=== PATIENT | female | born 1975 | race Caucasian/White ===

== ENCOUNTER 2016-12-30 14:35 | Emergency (ER) | payer MEDICAID | END 2016-12-30 15:05 | disposition left against medical advice (07) | LOC: ER 14:35 | DX: Z53.20 Procedure and treatment not carried out because of patient's decision for unspecified reasons (principal) ==

== ENCOUNTER 2017-01-24 16:46 | Emergency (ER) | payer MEDICAID ==
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
== END 2017-01-24 20:33 | disposition home or self-care (01) ==
LOC: ER 16:46
DX: S06.9X9A Unspecified intracranial injury with loss of consciousness of unspecified duration, initial encounter (principal); S60.031A Contusion of right middle finger without damage to nail, initial encounter; S20.02XA Contusion of left breast, initial encounter; S50.12XA Contusion of left forearm, initial encounter; S40.021A Contusion of right upper arm, initial encounter; S20.221A Contusion of right back wall of thorax, initial encounter; M54.2 Cervicalgia; F17.210 Nicotine dependence, cigarettes, uncomplicated; Y04.2XXA Assault by strike against or bumped into by another person, initial encounter; Z79.02 Long term (current) use of antithrombotics/antiplatelets
CPT/HCPCS: 70450; 72072; 72125; 99283; 99284

== ENCOUNTER 2017-05-10 12:48 | Emergency (ER) | payer MEDICAID ==
[2017-05-10 13:13] LABS: URINE APPEARANCE SL CLOUDY; URINE BILIRUBIN NEGATIVE (NEGATIVE); URINE BLOOD MODERATE (NEGATIVE); URINE COLOR YELLOW; URINE GLUCOSE (UA) NEGATIVE (NEGATIVE); URINE KETONE TRACE (NEGATIVE); URINE LEUKOCYTE ESTERASE LARGE (NEGATIVE); URINE NITRITE NEGATIVE (NEGATIVE); URINE PROTEIN TRACE (NEGATIVE); URINE UROBILINOGEN 0.2 E.U./dL (0.20 - 1.00)
[2017-05-10 13:21] LABS: HCG,QUALITATIVE URINE NEGATIVE (NEGATIVE); URINE BACTERIA 3+; URINE WBC 36 - 50 (0-2/hpf)
[2017-05-10] MEDS ORDERED: 0.9 % SODIUM CHLORIDE 1,000 ML BAG IV ONE (14:48)
[2017-05-10] MEDS ORDERED: ONDANSETRON HCL IV 4 MG/2 ML VIAL IV ONE (14:48)
[2017-05-10 14:58] LABS: BASO % 0.5 % (0-6); EOS % 2.2 % (0-6); GRAN % 64.7 % (47-80); HEMOGLOBIN 14.3 gm/dl (11.6-16.0); LYMPH % 26.8 % (16-45); MEAN CELL VOLUME 95.5 fl (81-97); MEAN CORPUSCULAR HEMOGLOBIN 32.5 pg (27-33); MEAN PLATELET VOLUME 10.1 fl (7.4-10.4); MONO % 5.8 % (0-9); PLATELET COUNT 258 K/uL (130-400); RED CELL DISTRIBUTION WIDTH 11.7 % (11.5-14.5); WHITE BLOOD COUNT W/O DIFF 9.7 K/uL (4.2-12.2)
[2017-05-10 15:12] LABS: CREATININE 1.1 mg/dL (0.5-0.9)
--- NOTE | 2017-05-10 16:22 | Emergency Department Record ---
History of Present Illness - General Chief complaint: Female Urogenital Problem Stated complaint: KIDNEY PAIN,BLOOD IN URINE Time Seen by Provider: 05/10/17 14:38 Source: Patient Mode of Arrival: Ambulatory Limitations: No limitations - History of Present Illness Initial comments: pt thinks she is having another kidney infection, she has pain in her r flank. no vomiting Onset/Timin -: Days(s) Location: Suprapubic Radiation: R flank Severity: Moderate Severity scale (1-10): 8 Quality: Aching, Burning, Cramping Consistency: Constant Patient : No Associated Symptoms: Nausea/vomiting - Related Data Previous Rx's Medication Instructions Recorded Promethazine HCl [Phenergan] 25 mg PO Q8HR #10 tablet 05/10/17 Sulfamethoxazole/Trimethoprim 1 each PO BID #14 tablet 05/10/17 [Bactrim Ds Tablet] Allergies Allergy/AdvReac Type Severity Reaction Status Date / Time No Known Drug Allergies Allergy Verified 05/10/17 14:08 Travel Screening - Travel/Exposure Within Last 30 Days Have you traveled within the last 30 days?: No - Travel/Exposure Within Last Year Have you traveled outside the [place] in the last year?: No - Additonal Travel Details Have you been exposed to anyone with a communicable illness?: No - Travel Symptoms Symptom Screening: None Review of Systems Reviewed: No additional complaints except as noted below Constitutional: Reports: As per HPI. Denies: Chills, Fever, Malaise, Night sweats, Weakness, Weight change Eyes: Reports: As per HPI. Denies: Eye discharge, Eye pain, Photophobia, Vision change ENT: Reports: As per HPI. Denies: Congestion, Dental pain, Ear pain, Epistaxis , Hearing loss, Throat pain Respiratory: Reports: As per HPI. Denies: Cough, Dyspnea, Hemoptysis, Stridor, Wheezes Cardiovascular: Reports: As per HPI. Denies: Arrhythmia, Chest pain, Dyspnea on exertion, Edema, Murmurs, Orthopnea, Palpitations, Paroxysmal nocturnal dyspnea, Rheumatic Fever, Syncope Endocrine: Reports: As per HPI. Denies: Fatigue, Heat or cold intolerance, Polydipsia, Polyuria Gastrointestinal: Reports: As per HPI. Denies: Abdominal pain, Constipation, Diarrhea, Hematemesis, Hematochezia, Melena, Nausea, Vomiting Genitourinary: Reports: As per HPI. Denies: Abnormal menses, Discharge, Dyspareunia, Dysuria, Frequency, Hematuria, Incontinence, Retention, Urgency Musculoskeletal: Reports: As per HPI. Denies: Arthralgia, Back pain, Gout, Joint swelling, Myalgia, Neck pain Skin: Reports: As per HPI. Denies: Bruising, Change in color, Change in hair/ nails, Lesions, Pruritus, Rash Neurological: Reports: As per HPI. Denies: Abnormal gait, Confusion, Headache, Numbness, Paresthesias, Seizure, Tingling, Tremors, Vertigo, Weakness Psychiatric: Reports: As per HPI. Denies: Anxiety, Auditory hallucinations, Depression, Homicidal thoughts, Suicidal thoughts, Visual hallucinations Hematological/Lymphatic: Reports: As per HPI. Denies: Anemia, Blood Clots, Easy bleeding, Easy bruising, Swollen glands Past Medical History - SOCIAL HISTORY Smoking Status: Light tobacco smoker (<10/day) Alcohol Use: None Drug Use: None - RESPIRATORY Hx Respiratory Disorders: No - CARDIOVASCULAR Hx Cardio Disorders: Yes Hx Hypertension: Yes - NEURO Hx Neuro Disorders: No - GI Hx GI Disorders: Yes Hx Abdominal Pain: Yes Comment:: chronic diarrhea - Hx Genitourinary Disorders: No - ENDOCRINE Hx Endocrine Disorders: No - MUSCULOSKELETAL Hx Musculoskeletal Disorders: Yes - PSYCH Hx Psych Problems: Yes Hx Depression: Yes - HEMATOLOGY/ONCOLOGY Hx Hematology/Oncology Disorders: Yes Hx Blood Transfusions: Yes Hx Blood Transfusion Reaction: No Family Medical History Any Significant Family History?: Yes Hx Heart Disease: Father Physical Exam - General General Appearance: Alert, Oriented x3, Cooperative, Mild distress - Head Head exam: Normal inspection - Eye Eye exam: Normal appearance, PERRL, EOMI Pupils: Normal accommodation - ENT ENT exam: Normal exam, Mucous membranes moist, Normal external ear exam, Normal orophraynx Ear exam: Normal external inspection. negative: External canal tenderness Nasal Exam: Normal inspection. negative: Discharge, Sinus tenderness Mouth exam: Normal external inspection, Tongue normal Teeth exam: Normal inspection. negative: Dental caries Throat exam: Normal inspection. negative: Tonsillar erythema, Tonsillar exudate - Neck Neck exam: Normal inspection, Full ROM. negative: Tenderness - Respiratory Respiratory exam: Normal lung sounds bilaterally. negative: Respiratory distress - Cardiovascular Cardiovascular Exam: Regular rate, Normal rhythm, Normal heart sounds - GI/Abdominal GI/Abdominal exam: Soft, Normal bowel sounds. negative: Tenderness - Rectal Rectal exam: Deferred - exam: Deferred - Extremities Extremities exam: Normal inspection, Full ROM, Normal capillary refill. negative: Tenderness - Back Back exam: Reports: Normal inspection, Full ROM. Denies: Muscle spasm, Rash noted, Tenderness - Neurological Neurological exam: Alert, CN II-XII intact, Normal gait, Oriented X3 - Psychiatric Psychiatric exam: Normal affect, Normal mood - Skin Skin exam: Dry, Intact, Normal color, Warm Course Vital Signs 05/10/17 05/10/17 14:04 15:32 Temperature 98.2 F Pulse Rate 73 Pulse Rate [ 73 Pulse Ox Probe] Respiratory 20 16 Rate Blood Pressure 122/79 Blood Pressure 100/75 [Right Arm] Pulse Ox 98 98 Medical Decision Making - Lab Data Result diagrams: 05/10/17 14:30 05/10/17 14:30 Lab Results 05/10/17 05/10/17 05/10/17 Range/Units 13:05 14:30 14:30 WBC 9.7 (4.2-12.2) K/uL RBC 4.40 (3.80-5.40) M/uL Hgb 14.3 (11.6-16.0) gm/dl Hct 42.0 (35.0-47.0) % MCV 95.5 (81-97) fl MCH 32.5 (27-33) pg MCHC 34.0 (32-36) g/dl RDW 11.7 (11.5-14.5) % Plt Count 258 (130-400) K/uL MPV 10.1 (7.4-10.4) fl Gran % 64.7 (47-80) % Lymphocytes % 26.8 (16-45) % Monocytes % 5.8 (0-9) % Eosinophils % 2.2 (0-6) % Basophils % 0.5 (0-6) % Sodium 139 (136-145) mmol/L Potassium 4.3 (3.4-4.5) mmol/L Chloride 99 (98-107) mmol/L Carbon Dioxide 26.0 (22-29) mmol/L Anion Gap 14.0 (7-16) BUN 25 H (6-20) mg/dL Creatinine 1.1 H (0.5-0.9) mg/dL Estimated GFR 58 mL/min Random Glucose 95 (74-109) mg/dL Calcium 9.6 (8.6-10.0) mg/dL Urine Color Yellow Urine Appearance Sl cloudy Urine pH 5.5 (5.0-8.0) Ur Specific Cubero 1.020 (1.002-1.030) Urine Protein Trace H (NEGATIVE) Urine Glucose (UA) Negative (NEGATIVE) Urine Clinitest Urine Ketones Trace H (NEGATIVE) Urine Blood Moderate (NEGATIVE) Urine Nitrite Negative (NEGATIVE) Urine Bilirubin Negative (NEGATIVE) Urine Ictotest Prot Sulfosalicylic Acd Urine Urobilinogen 0.2 (0.20 - 1.00) E.U./dL Ur Leukocyte Esterase Large H (NEGATIVE) Urine RBC 10 - 15 (NONE SEEN) Urine WBC 36 - 50 (0-2/hpf) Ur Epithelial Cells 7 - 10 (FEW) Urine Bacteria 3+ Urine HCG, Qual Negative (NEGATIVE) 05/10/17 Range/Units 14:48 WBC (4.2-12.2) K/uL RBC (3.80-5.40) M/uL Hgb (11.6-16.0) gm/dl Hct (35.0-47.0) % MCV (81-97) fl MCH (27-33) pg MCHC (32-36) g/dl RDW (11.5-14.5) % Plt Count (130-400) K/uL MPV (7.4-10.4) fl Gran % (47-80) % Lymphocytes % (16-45) % Monocytes % (0-9) % Eosinophils % (0-6) % Basophils % (0-6) % Sodium (136-145) mmol/L Potassium (3.4-4.5) mmol/L Chloride (98-107) mmol/L Carbon Dioxide (22-29) mmol/L Anion Gap (7-16) BUN (6-20) mg/dL Creatinine (0.5-0.9) mg/dL Estimated GFR mL/min Random Glucose (74-109) mg/dL Calcium (8.6-10.0) mg/dL Urine Color Cancelled Urine Appearance Cancelled Urine pH Cancelled (5.0-8.0) Ur Specific Cubero Cancelled (1.002-1.030) Urine Protein Cancelled (NEGATIVE) Urine Glucose (UA) Cancelled (NEGATIVE) Urine Clinitest Cancelled Urine Ketones Cancelled (NEGATIVE) Urine Blood Cancelled (NEGATIVE) Urine Nitrite Cancelled (NEGATIVE) Urine Bilirubin Cancelled (NEGATIVE) Urine Ictotest Cancelled Prot Sulfosalicylic Acd Cancelled Urine Urobilinogen Cancelled (0.20 - 1.00) E.U./dL Ur Leukocyte Esterase Cancelled (NEGATIVE) Urine RBC (NONE SEEN) Urine WBC (0-2/hpf) Ur Epithelial Cells (FEW) Urine Bacteria Urine HCG, Qual (NEGATIVE) Disposition Disposition: Discharge Clinical Impression: Pyelonephritis Disposition: Home, Self-Care Condition: (1) Good Instructions: Kidney Infection (ED) Additional Instructions: follow up with family doctor. return sooner if worse. push fluids Prescriptions: Promethazine HCl [Phenergan] 25 mg PO Q8HR #10 tablet Sulfamethoxazole/Trimethoprim [Bactrim Ds Tablet] 1 each PO BID #14 tablet Quality - Quality Measures Quality Measures: N/A - Blood Pressure Screening Does Patient Have Any of the Following: No Blood Pressure Classification: Pre-Hypertensive BP Reading Systolic Measurement: 122 Diastolic Measurement: 79 Screening for High Blood Pressure: < Pre-Hypertensive BP, F/U Documented > [ G8950] Pre-Hypertensive Follow-up Interventions: Follow-up with rescreen every year.
--- NOTE | 2017-05-11 11:14 | CT SCAN REPORT ---
EXAM: EMERGENCY CT OF THE ABDOMEN AND PELVIS WITHOUT CONTRAST HISTORY: RIGHT FLANK AND RIGHT LOWER QUADRANT PAIN FOR A COUPLE DAYS, HYSTERECTOMY. TECHNIQUE: Axial CT scan of the abdomen and pelvis was performed without oral or IV contrast. Comparison: CT of the abdomen and pelvis 10/27/13. FINDINGS: The gallbladder is largely contracted, but no calcified gallstones are seen within the gallbladder. No intrarenal calculi identified within the right kidney. There is probably a single tiny nonobstructing calculus within the left kidney. No definite hydronephrosis or hydroureter identified on either side with no ureteral calculus seen on either side and no bladder calculus evident. There is some mild nonspecific stranding of soft tissue in the perirenal space bilaterally. This can be seen in the presence of infection or obstruction, but could also be sequela of prior episodes. Evaluation of the bowel and viscera is very limited without oral or IV contrast. Given this limitation, no definite hepatic, splenic, adrenal, pancreatic, or renal mass identified. There is a retroaortic left renal vein present, a developmental variant. The uterus is not identified consistent with the surgical history. No appendicitis identified. Postop sternotomy evident on the upper images. No free intraperitoneal air or free intraperitoneal fluid identified. There is a mild thoracolumbar curve convexed to the left. Tiny periumbilical anterior abdominal wall hernia containing adipose tissue, but no bowel. IMPRESSION: 1. SINGLE TINY NONOBSTRUCTING CALCULUS IN THE LEFT KIDNEY. NO DEFINITE HYDRONEPHROSIS OR URETERAL CALCULUS ON EITHER SIDE. NONSPECIFIC MILD STRANDING OF THE PERIRENAL SPACE BILATERALLY. 2. POSTOP HYSTERECTOMY. 3. NO APPENDICITIS EVIDENT. NO FREE AIR OR FREE FLUID SEEN. JOB NUMBER: [id number] [facility]
== END 2017-05-10 16:25 | disposition home or self-care (01) ==
LOC: ER 12:48
DX: N10 Acute pyelonephritis (principal); R31.29 Other microscopic hematuria; R11.0 Nausea; I10 Essential (primary) hypertension; F17.210 Nicotine dependence, cigarettes, uncomplicated
CPT/HCPCS: 99284 ×2; 96374; 85025; 80048; 81001; 81025; 74176; J2405; J7030

== ENCOUNTER 2017-08-27 21:51 | Emergency (ER) | payer MEDICAID ==
[2017-08-27] MEDS ORDERED: MORPHINE SULFATE 4MG/ML PREFILLED SYRINGE IVP ONE ×2 (21:59→22:38)
[2017-08-27] MEDS ORDERED: ACETAMINOPHEN 1,000 MG/100 ML BTL IVPB ONE (21:59)
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
[2017-08-27 22:16] LABS: BASO % 0.5 % (0-6); EOS % 1.9 % (0-6); GRAN % 59.7 % (47-80); HEMATOCRIT 35.2 % (35.0-47.0); HEMOGLOBIN 11.3 gm/dl (11.6-16.0); LYMPH % 31.9 % (16-45); MEAN CELL VOLUME 97.2 fl (81-97); MEAN CORPUSCULAR HEMOGLOBIN 31.2 pg (27-33); MEAN CORPUSCULAR HGB CONC 32.1 g/dl (32-36); MEAN PLATELET VOLUME 9.2 fl (7.4-10.4); PLATELET COUNT 335 K/uL (130-400); RED BLOOD COUNT 3.62 M/uL (3.80-5.40); WHITE BLOOD COUNT W/O DIFF 6.5 K/uL (4.2-12.2)
[2017-08-27 22:27] LABS: INR 1.5; PARTIAL THROMBOPLASTIN TIME 42.1 SECONDS (24.5-39.1)
[2017-08-27 22:50] LABS: BLOOD UREA NITROGEN 14 mg/dL (6-20); EST GLOMERULAR FILTRATION RATE > 60 mL/min
[2017-08-27 22:53] LABS: GLUCOSE,RANDOM 94 mg/dL (74-109)
[2017-08-28] MEDS ORDERED: HYDROCODONE/APAP 7.5/325MG TABLET PO ONE (01:53)
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
== END 2017-08-28 02:05 | disposition home or self-care (01) ==
LOC: ER 21:51
DX: S29.011A Strain of muscle and tendon of front wall of thorax, initial encounter (principal); R06.00 Dyspnea, unspecified; R07.89 Other chest pain; I10 Essential (primary) hypertension; F17.210 Nicotine dependence, cigarettes, uncomplicated; Z95.2 Presence of prosthetic heart valve; Z79.01 Long term (current) use of anticoagulants; Z98.890 Other specified postprocedural states
CPT/HCPCS: 99284 ×2; 96374; 96375; 85025; 85730; 85610; 80048; 84484; 83880; 71260; 93005; 93010; Q9967; J2274

== ENCOUNTER 2017-10-31 13:56 | Emergency (ER) | payer MEDICAID ==
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
[2017-10-31 14:42] LABS: BASO % 0.7 % (0-6); EOS % 0.4 % (0-6); GRAN % 69.3 % (47-80); HEMOGLOBIN 14.3 gm/dl (11.6-16.0); LYMPH % 23.1 % (16-45); MEAN CELL VOLUME 91.5 fl (81-97); MEAN CORPUSCULAR HEMOGLOBIN 30.4 pg (27-33); MEAN CORPUSCULAR HGB CONC 33.3 g/dl (32-36); MEAN PLATELET VOLUME 9.7 fl (7.4-10.4); MONO % 6.5 % (0-9); PLATELET COUNT 310 K/uL (130-400); RED CELL DISTRIBUTION WIDTH 13.7 % (11.5-14.5); WHITE BLOOD COUNT W/O DIFF 7.4 K/uL (4.2-12.2)
[2017-10-31 14:50] LABS: AMPHETAMINE SCREEN URINE NOT DETECTED; BARBITURATE SCREEN URINE NOT DETECTED; BENZODIAZEPINE SCREEN URINE NOT DETECTED; COCAINE SCREEN URINE NOT DETECTED; METHADONE SCREEN URINE NOT DETECTED; METHAMPHETAMINE SCREEN NOT DETECTED; OPIATE SCREEN URINE NOT DETECTED; OXYCODONE SCREEN URINE NOT DETECTED; PHENCYCLIDINE SCREEN URINE NOT DETECTED; PROPOXYPHENE SCREEN URINE NOT DETECTED; THC SCREEN URINE NOT DETECTED; TRICYCLIC ANTIDEPRESSANT SCRN DETECTED
[2017-10-31 14:52] LABS: BLOOD UREA NITROGEN 14 mg/dL (6-20); CREATININE 0.9 mg/dL (0.5-0.9); EST GLOMERULAR FILTRATION RATE > 60 mL/min
[2017-10-31 14:53] LABS: BILIRUBIN,TOTAL < 0.20 mg/dL (0.2-1.0); TOTAL PROTEIN 7.5 g/dL (6.6-8.7)
[2017-10-31 14:55] LABS: GLUCOSE,RANDOM 92 mg/dL (74-109)
[2017-10-31 14:58] LABS: ALBUMIN 4.5 g/dL (4.0-5.0); ALKALINE PHOSPHATASE 99 U/L (35-104); ALT/SGPT 14 U/L (<33); AST/SGOT 17 U/L (10.0-35.0)
[2017-10-31 15:07] LABS: INR 0.9; PARTIAL THROMBOPLASTIN TIME 30.8 SECONDS (24.5-39.1); PROTHROMBIN TIME (PATIENT) 9.9 SECONDS (9.5-12.1)
[2017-10-31 15:09] LABS: ALB/GLOB RATIO 1.5 (1.1-1.8); ALCOHOL 0.152 g/dL (0-0.010)
[2017-10-31 15:12] LABS: ACETAMINOPHEN < 5.0 ug/mL (10.0-30.0); SALICYLATE < 0.3 mg/dL (2.8-20)
[2017-10-31] MEDS ORDERED: LORAZEPAM 2 MG/ML VIAL IV ONE (18:25)
[2017-10-31] MEDS ORDERED: LORAZEPAM 0.5 MG TABLET PO ONE (20:46)
--- NOTE | 2017-11-01 19:49 | RADIOLOGY REPORT ---
EXAM: CHEST 1 VIEW HISTORY: DIFFICULTY IN BREATHING. TECHNIQUE: A single AP portable view of the chest was performed. FINDINGS: There is mild cardiomegaly. The lungs are hyperinflated. No infiltrate or pleural effusion. There is a dextroconvex scoliotic curvature. IMPRESSION: 1. HYPERINFLATED LUNGS. NO ACUTE PROCESS. 2. DEXTROCONVEX SCOLIOTIC CURVATURE OF THE THORACIC SPINE. JOB NUMBER: [id number] MTDD
== END 2017-10-31 20:52 ==
LOC: ER 13:56
DX: T43.592A Poisoning by other antipsychotics and neuroleptics, intentional self-harm, initial encounter (principal); T42.6X2A Poisoning by other antiepileptic and sedative-hypnotic drugs, intentional self-harm, initial encounter; T51.0X2A Toxic effect of ethanol, intentional self-harm, initial encounter; F32.9 Major depressive disorder, single episode, unspecified; I10 Essential (primary) hypertension; F17.210 Nicotine dependence, cigarettes, uncomplicated
CPT/HCPCS: 99285 ×2; 96374; 83735; 85025; 85730; 85610; 80053; 81025; 80305; 71045; 93005; 93010; G0480 ×3; J2060; 80320; 80329

== ENCOUNTER 2018-07-26 17:48 | Emergency (ER) | payer MEDICAID ==
[2018-07-26] MEDS ORDERED: ORPHENADRINE CITRATE 60MG/2ML VIAL IM ONE (19:09)
[2018-07-26] MEDS ORDERED: KETOROLAC 30 MG/ML VIAL IM ONE (19:09)
[2018-07-26] MEDS ORDERED: LIDOCAINE 5% PATCH TOP ONE (19:09)
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
== END 2018-07-26 20:31 | disposition home or self-care (01) ==
LOC: ER 17:48
DX: G89.11 Acute pain due to trauma (principal); M54.6 Pain in thoracic spine; S22.058D Other fracture of T5-T6 vertebra, subsequent encounter for fracture with routine healing; W19.XXXD Unspecified fall, subsequent encounter; I10 Essential (primary) hypertension; F17.210 Nicotine dependence, cigarettes, uncomplicated
CPT/HCPCS: 99283 ×2; 96372; J1885; J2360